=== PATIENT | male | born 1965 | race Caucasian/White ===

== ENCOUNTER 2024-07-23 07:52 | Outpatient (CLI) | payer OTHER ==
[2024-07-23] MEDS ORDERED: Iopamidol 370 76% 100 ML VIAL ONE (13:47)
== END 2024-07-23 07:53 | disposition home or self-care (01) ==
LOC: CSHCT 07:52
PROVIDERS: ATTEND Internal Medicine
DX: C18.9 Malignant neoplasm of colon, unspecified (principal); K63.9 Disease of intestine, unspecified; K38.8 Other specified diseases of appendix
CPT/HCPCS: 36415; 74177; 82565